=== PATIENT | female | born 1955 | race Caucasian/White ===

== ENCOUNTER 2025-02-11 13:49 | Inpatient (IN) | payer MEDICARE, OTHER, SELFPAY ==
[2025-02-11] VITALS (12 sets, daily range): BP systolic 94–168; BP diastolic 38–120; BMI 29.6
[2025-02-11 08:17] LABS: Glucose - Point of Care 216 mg/dl (70-99)
--- NOTE | 2025-02-11 08:33 | ED.GENMED ---
History of Present Illness
General
Chief Complaint: Blood Sugar Problem
Source: patient
Exam Limitations: none
Time Seen by Provider: 02/11/25 08:10
Nursing documentation reviewed up to this point in time: agreed with
History of Present Illness
History of Present Illness:
69-year-old female sent by [facility]. Patient has a history of bipolar depression dementia and was found in the middle of the night taking her sheets off and acting funny her sugar at that time was found to be 27. She was given 2
separate injections of glucagon. Around 6:40am this morning patient was still acting confused and shivering. I spoke to shelter nurse reports patient has mild dementia however is able to hold conversation and follow commands. She is able
to eat and drink on her own and ambulate without difficulty.
Past History
Past History
ED Past Medical History: Fibromyalgia, GERD, HTN, Hypercholesterolemia, IDDM (Very brittle diabetic.), Hypothyroidism and Other (Glaucoma)
ED Past Surgical History: and Orthopedic
Social History
Tobacco: Non-smoker
Alcohol: None
Drug: None
Personal: Other (Patient lives at [facility]. According to shelter personnel patient was living with her sister who works timekeeper. Her sister would frequently come home and find patient unresponsive due to her diabetes. Patient is
unable to take care of herself regarding her diabetes.)
Living: shelter
Employment: Not employed
Family History
Family History: Unable to obtain
Review of Systems
Review of Systems
Allergies reviewed?: Yes
Unable to obtain full review of systems at this time due to: dementia (change in ms )
Other source history: shelter
All Other Systems: ROS reviewed and negative except as documented in HPI and ROS
Constitutional: Reports chills (shivering as per [place] nurse )
Neurological: Reports other (change in MS )
Psychiatric: Reports no symptoms
Phy Exam
General Physical Exam
General Presentation: no apparent distress
General age: appears older than age
General Skin: warm
General Habitus: elderly
General Mental: confused
General Hydration: appears well hydrated
Cardiovascular Exam
Cardiovascular Exam: no murmur and tachycardia
Pulmonary Exam
Pulmonary Exam: lungs clear and no respiratory distress
Neurological Exam
Neurological Exam: other (pt confused )
Musculoskeletal Exam
Musculoskeletal Exam: full ROM
Skin Exam
Skin Exam: normal color and warm/dry
Psychiatric Exam
Psychiatric Exam: normal mood/affect
Course
Orders/Labs/Results
Orders:
Orders
02/11/25 08:31
CMP [Comprehensive Metabolic Panel] Urgent
Complete Blood Count/With Diff Urgent
TSH Reflex To Free T4 Urgent
Comment: ADD ON
02/11/25 08:34
Add On- LAB Urgent
Tests Added?: tsh with reflexive T4
02/11/25 08:40
Straight cath- Treatment ONCE
02/11/25 08:46
Chest [CR Chest - 2 Views ] Urgent
Comment:
Reason For Exam: change in ms
02/11/25 09:08
COVID-19 Antigen Urgent
Source: Nasal Swab
Lactic Acid Q4H
Comment: CANCEL 2nd LACTIC ACID IF 1st LACTIC ACID IS LESS THAN 2
Urinalysis Reflex To Culture Urgent
Date Specimen was Collected: 02/11/25
Time Specimen was Collected: 09:06
Urine Microscopic Reflex Cult Urgent
Blood Culture Q30M
TRISTAN Source: Blood/Venous
Specimen Description:
Influenza A+B Rapid Molecular Urgent
TRISTAN Source: Nasal Swab
Specimen Description:
02/11/25 09:52
CT Head W/o Iv Contrast Urgent
Comment:
Reason For Exam: MS change
02/11/25 09:55
0.9% Sodium Chloride 1000 ml [Nss] 1,000 ml IV BOLUS
02/11/25 10:27
Blood Culture Q30M
TRISTAN Source: Blood/Venous
Specimen Description:
02/11/25 11:14
Acetaminophen 1000MG/100Ml [Ofirmev] 1,000 mg in 100 ml IV ONCE
Acetaminophen IV Indication:: Targeted Temp Management
02/11/25 11:16
Acetaminophen 1000MG/100Ml [Ofirmev] 1,000 mg in 100 ml .ROUTE .STK-MED
02/11/25 11:20
Electrocardiogram (*1) Stat
Reason for Study: Other
Other Reason for Exam: chest pain
EKG- Treatment ONCE
02/11/25 13:26
Admit/Transfer Patient As Directed
Co-Sign Provider:
Level of Care: Inpatient admission
Assign to:: Medical/Surgical
Physician / Group: hospitalist
Diagnosis: hypoglycemia
Reason for Hospitalization: Hypoglycemia
Expected length of stay greater than two midnights?: Yes
ELOS- Estimated Length of Stay in days: 3
I certify the patient meets the requirements for IP care: Yes
Code Status As Directed
Resuscitation Status: Full Code
02/11/25 13:29
PRN Pain Medication Management As Directed
May give lesser potent ordered pain med per pt: Yes
preference::
Protocol:: Medication orders for pain may be administered in a
manner that supports deferring to patient preference
when the pt is:
- Requesting an ordered lesser potent pain medication.
Least to most potent pain medications are defined
as: acetaminophen < NSAID < tramadol < opioids
(morphine, oxycodone, hydromorphone).
- Requesting a lesser dose of the same medication IF
ORDERED.
- Requesting a less intrusive route of administration
if both routes are prescribed by the provider (PO <
IV).
02/11/25 13:37
Vancomycin [Vancocin] 1,500 mg 0.9% Sodium Chloride 500 ml [Nss] 500 ml IV NOW
02/11/25 14:00
Piperacillin/Tazo 3.375 Gram [Zosyn] 3.375 gram in 50 ml IV Q6H
02/11/25 16:46
Albuterol [ProAIR HFA INHALER] 2 puff INH R Q4HPRN PRN
Ipratropium/Albuterol Sulfate [Duoneb] 3 ml INH R Q4
02/11/25 16:46
Activity As Directed
Activity Level: As Tolerated
Notify MD As Directed
Notify physician if: Bridge Admission orders placed.
Notify attending physician:
-- upon arrival to unit
OR
-- when patient is identified as an ED hold
Vital Signs As Directed
Frequency: Per unit guidelines
O2 Therapy [RESP] Routine
Titrate/Wean O2 to maintain O2 sat greater than (%): 92
DX Deep Vein Thrombosis Video Routine
02/11/25 18:00
Enoxaparin Sodium [Lovenox] 40 mg SC QPM
Insulin Aspart Corrective Low [Novolog Flexpen-Low Resistance] See Protocol SC Q6
02/11/25 20:00
dorzolamide-timolol 1 drop BOTH EYES BID
02/11/25 22:00
Atorvastatin [Lipitor] 5 mg PO HS
Latanoprost [Xalatan Ophthalmic Solution] See Dose Instructions BOTH EYES HS
Melatonin 5 mg PO HS
02/12/25 07:00
Levothyroxine [Synthroid] 75 mcg PO MOTUWETHFRSA@0700
02/12/25 08:00
Duloxetine Delayed Release [Cymbalta Delayed Release] 60 mg PO DAILY
Lisinopril [Zestril] 5 mg PO DAILY
Abnormal Lab Results
02/11/25 02/11/25 02/11/25
08:16 08:31 09:08
WBC 14.8 H 10^3/uL
(4.8-10.8)
MCV 79.8 L fL
(81.0-99.0)
MCH 25.8 L pg
(27.0-31.0)
MCHC 32.4 L g/dL
(33.0-37.0)
MPV 11.1 H fL
(7.4-10.4)
Abs Immat Gran (auto) 0.1 H 10^3/uL
(0-0.05)
Absolute Neuts (auto) 11.1 H 10^3/uL
(1.4-6.5)
Neutrophils % 75.4 H %
(42.2-75.2)
Lymphocytes % 18.6 L %
(20.5-51.1)
Potassium 5.6 H mmol/L
(3.5-5.1)
BUN 19 H mg/dl
(7-17)
Glucose 245 H mg/dl
(70-99)
AST 48 H U/L
(14-36)
ALT 39 H U/L
(0-35)
Alkaline Phosphatase 175 H U/L
(38-126)
Urine Glucose 3+ A
(Negative)
Urine Albumin (Reflex) 3+ A
(Neg - Trace)
POC Glucose 216 H mg/dl
(70-99)
02/11/25
10:28
WBC
MCV
MCH
MCHC
MPV
Abs Immat Gran (auto)
Absolute Neuts (auto)
Neutrophils %
Lymphocytes %
Potassium
BUN
Glucose
AST
ALT
Alkaline Phosphatase
Urine Glucose
Urine Albumin (Reflex)
POC Glucose 207 H mg/dl
(70-99)
02/11/25 08:31
02/11/25 08:31
Vital Signs
Initial and Last Documented VS:
Initial Vital Signs
Temp Pulse Resp BP Pulse Ox
96.7 F L 116 24 157/100 94
02/11/25 08:14 02/11/25 08:14 02/11/25 08:14 02/11/25 08:14 02/11/25 08:14
Last Documented Vital Signs
Temp Pulse Resp BP Pulse Ox
98.1 F 112 18 179/101 96
02/12/25 23:00 02/12/25 23:00 02/12/25 23:00 02/12/25 23:00 02/12/25 23:00
Getterer consulted with Physician
Getterer consulted with physician?: Yes
Name of Physician Consulted: Ozzy
MDM/Problems Addressed
MDM/Problems Addressed:
As documented patient is a 69-year-old female from the shelter was found to have change in mental status. Incidentally patient was found to have a low blood sugar in the [place] of 27 and was given 2 separate administrations of glucagon. I
spoke with the nurse at the shelter who reports patient is normally awake alert and oriented very minimally demented however able to care for herself. Patient is not able to give history she does not follow commands. Patient presented with an
elevated sugar here. Her CT head is unremarkable. Initially patient was found to be hypothermic with a temp of 96.7 however repeat temperature shows 100.6.
Patient's white count is elevated at 14.8 with a negative urine negative x-ray and normal lactic acid of 1.9.
Will admit for fever of unknown origin along with change in mental status will need further evaluation
*Radiology
Radiology exam reviewed: radiology read reviewed
*Pulse Oximetry
Patient hypoxic: no
*Critical Care Note
Total Time (30-74mins, 75-104mins- exclusive of procedures): Not Applicable
ED Attending Note
-
Portions of this chart may have been created with voice recognition software.� Occasional wrong word or��sound alike� substitutions may have occurred due to the inherent limitations of voice recognition software.
Discharge Plan
Departure
Patient Disposition: Admit
Date of Disposition: 02/11/25
Time of Disposition: 12:04
Admit to: Med/Surg
Admit to doctor: hospitalist
Presentation/result/management discussed w/ accepting MD/DO: Hospitalist
Patient with high blood pressure during this ER visit?: No
Condition: Fair
Covid-19: Not Applicable
Discharge Problem:
change in ms, Fever
Interventions
Interventions:
*Risk Screen - Suicide Last Done: 02/11/25 08:20
*General Assessment Last Done: 02/11/25 08:36
*Neglect/Abuse Screening Last Done: 02/11/25 08:20
*ED- Fall Risk Assessment Last Done: 02/11/25 08:20
*ED COVID-19 Vaccine History Last Done: 02/11/25 08:20
*Nursing Disposition Last Done: 02/11/25 16:47
ED- Neurological Assessment Last Done: 02/11/25 15:28
Discharge Date and Time
Discharge Date/Time: 02/11/25 16:49
[2025-02-11 08:41] LABS: % Basophils 0.9 % (0-2); % Eosinophils 0.9 % (0-6); % Immature Granulocytes 0.4 % (0-0.5); % Lymphocytes 18.6 % (20.5-51.1); % Monocytes 3.8 % (1.7-9.3); % Neutrophils 75.4 % (42.2-75.2); Absolute Basophils 0.1 10^3/uL (0-0.2); Absolute Eosinophils 0.1 10^3/uL (0-0.7); Absolute Immature Granulocytes 0.1 10^3/uL (0-0.05); Absolute Lymphocytes 2.7 10^3/uL (1.2-3.4); Absolute Monocytes 0.6 10^3/uL (0.1-0.6); Absolute Neutrophils 11.1 10^3/uL (1.4-6.5); Hemoglobin 12.3 g/dL (12.0-16.0); Mean Corp Hgb Conc. 32.4 g/dL (33.0-37.0); Mean Corpuscular Hgb 25.8 pg (27.0-31.0); Mean Corpuscular Volume 79.8 fL (81.0-99.0); Mean Platelet Volume 11.1 fL (7.4-10.4); Nucleated Red Blood Cells % 0 %; Platelet Count 269 10^3/uL (130-400); Red Blood Cell Count 4.76 10^6/uL (4.20-5.40); Red Cell Dist. Width 13.9 % (11.5-14.5); White Blood Cell Count 14.8 10^3/uL (4.8-10.8)
[2025-02-11 08:57] LABS: ALT (SGPT) 39 U/L (0-35); AST (SGOT) 48 U/L (14-36); Albumin 4.9 g/dl (3.5-5.0); Alkaline Phosphatase 175 U/L (38-126); Blood Urea Nitrogen 19 mg/dl (7-17); Carbon Dioxide 25 mmol/L (22-30); Chloride 103 mmol/L (98-107); Glucose 245 mg/dl (70-99); Potassium 5.6 mmol/L (3.5-5.1); Sodium 141 mmol/L (135-145); Total Bilirubin 0.6 mg/dl (0.2-1.3); Total Protein 8.2 g/dl (6.3-8.2); eGFR > 60.00
[2025-02-11 09:32] LABS: Urine Albumin 3+ (Neg - Trace); Urine Bilirubin Negative (Negative); Urine Character Clear (Clear); Urine Color Yellow; Urine Glucose 3+ (Negative); Urine Ketone Negative (Negative); Urine Leukocyte Negative (Negative); Urine Nitrite Negative (Negative); Urine Occult Blood Negative (Negative); Urine Specific Gravity 1.015 (<1.030); Urine Urobilinogen Negative (Neg - 1+)
[2025-02-11 10:01] LABS: COVID-19 Antigen Negative (Negative)
[2025-02-11] MEDS: NSS 1000 IV (10:18)
[2025-02-11 10:29] LABS: Glucose - Point of Care 207 mg/dl (70-99)
[2025-02-11 10:47] LABS: TSH Reflex To Free T4 0.56 uIU/ml (0.47-4.68)
[2025-02-11 10:50] LABS: Urine Hyaline Cast >15 /LPF (0-2); Urine Squamous Cell 0-2 /LPF (Few)
[2025-02-11 10:51] LABS: Urine Red Blood Cell 0-2 /HPF (0-2); Urine White Cell 0-2 /HPF (0-5)
--- NOTE | 2025-02-11 11:06 | EDRN ---
call to lab as lactic acid still is not resulted- sent at 0910
[2025-02-11 11:14] LABS: Lactic Acid 1.9 mmol/L (0.7-2.0)
[2025-02-11] MEDS: OFIRMEV 100 IV (11:18)
--- NOTE | 2025-02-11 13:26 | HPS.HSE ---
Addendum entered and electronically signed by Larry Bolton MD 02/11/25 22:23:
Attending Addendum-
I performed a history and physical exam of the patient and discussed his management with the resident. I reviewed the resident's note and agree with the documented findings and plan of care CC/HPI- Sent from [facility] due to chills HTN, acting
strange and hypoglycemia. Patient is only answering yes/no. Denies fevers chills SOB urinary sxs CP. Full 12 point ROS reviewed and negative except as documented Exam- vitals reviewed in EMR GEN-NAD head under covers heart RRR lungs decreased BS @
bases abd soft obese TTP LLQ no rebound guarding LE no edema Neruo- AAO x 3 follows commands MS 03/04
Plan:
#Sepsis, secondary to unknown source
- check Blood Cx urine cx
- cont empiric Zosyn/Vanc day #1
- Abd pain on exam, check CT abd/pelvis
- r/u PE check CT chest
- monitor closely
#Toxic Metabolic Encephalopathy, possibly secondary to sepsis vs hypoglycemia vs meds
- able to follow commands/respond to basic questions
- CT head unremarkable
- will c/t monitor
- hold sedating meds for now
#Hyperkalemia, uncertain etiology
- K on admission 5.6 No ECG changes
- Will continue to monitor
- repeat BMP in am
- EKG w/o T wave changes
- cont duonebs
#Transaminitis
#Chronic Hepatitis?
- records show chronic hepatitis
- AST/ALT/ALP elevation
- Observe CT for liver findings
- will c/t trend
#Dementia, mild to moderate - baseline per [facility] staff is that she is able to take care of her ADLs and communicate appropriately
#IDDM - brittle per records, was hypoglycemic at [facility], c/w LDISS. Holding oral antiglycemic agents & home HS/AC insulin, check Hba1c
#Essential Hypertension - c/w lisinopril
#Hyperlipidemia - c/w statin
#Hypothyroidism - c/w levothyroxine
#Fibromyalgia
- holding pregabalin, hydrocodone
- CTM
#Bipolar/Depression/Anxiety - c/w Duloxetine
- restart ativan tomorrow as taking it chronically
#Glaucoma - c/w timolol and latanoprost drops
DVT Ppx: Lovenox
Code Status: Full Code AAO x 3
Time spent coordinating care, review of plan of care with resident, personally reviewed previous records in EMR and limited [facility] records provided, med rec, labs, radiology, d/w nursing �- 75 mins
Original Note:
Family Physician
-
Family Physician: Praveen Ceballos
Chief Complaint
-
Hypoglycemia
AMS
Rigors
History of Present Illness
Patient is a 69 year old female who presents from [facility] for symptoms of hypoglycemia, altered mental status and new rigors. She remains altered on exam with a PMHx significant for dementia. As such, she was minimally responsive
during interview.
Called the [facility] and spoke with Jaquelin:
Per reports, the patient was found at night on 02/10 to be acting strange, taking her sheets off. When they returned to check on her she was unresponsive. VS at that time show BP 180/80mmHg, 116 HR, 20-22, 95% on RA. No temp recorded. Blood sugar was
found to be 27. She was given glucagon. repeat sugars were 78 after 1 hour and so another glucagon was administered. After 30 minutes her blood sugar was up to 106 and she was awake and responsive but groggy. In the morning she was found to still be
altered, only now she was having chills. There are no reports of recent illnesses or recent symptoms of fevers, dysuria, or pain. She does not have any documented wounds or ulcers.
Medical History
Past Medical History
Past Medical History: Reports Dementia, HTN, Hypercholesterolemia, Hypothyroidism, IDDM and Psychiatric
Past Surgical History: Reports and Other (Repair of Wrist fracture)
Social History
Unable to obtain full social history at this time due to: Dementia
Family History
Family History: Unable to Obtain
Allergies / Home Medications
Allergies reflects when Allergies were last updated in [facility].
Home Medications with original date entered in [facility]
Allergy/Medication List:
Allergies
Allergy/AdvReac Type Severity Reaction Status Date / Time
No Known Allergies Allergy Verified 01/05/23 10:36
Home Medications
aspirin 81 mg chewable tablet 81 mg PO DAILY Blood clot prevention/tx 10/28/21
atorvastatin 10 mg tablet 5 mg PO HS High cholesterol 10/28/21
cyclosporine 0.05 % eye drops in a dropperette (Restasis) 1 drp BOTH EYES BID Eye condition 10/28/21
duloxetine 60 mg capsule,delayed release 60 mg PO DAILY Depression 10/28/21
lisinopril 5 mg tablet 5 mg PO DAILY Blood pressure 10/28/21
lorazepam 0.5 mg tablet 0.5 mg PO HS Mental Health/Anxiety 10/28/21
melatonin 5 mg tablet 5 mg PO HS Sleep 10/28/21
thiamine HCl (vitamin B1) 100 mg tablet 100 mg PO DAILY Supplement 10/28/21
trazodone 50 mg tablet 25 mg PO HS Depression 10/28/21
biotin 5 mg capsule 5 mg PO DAILY Supplement 12/21/21
pregabalin 50 mg capsule 50 mg PO TID Neurological Condition 12/21/21
acetaminophen 325 mg tablet 650 mg PO Q4HPRN PRN mild pain/fever>100 03/09/22
coQ10 (ubiquinol) 200 mg capsule 200 mg PO BID Supplement 08/10/22
hydrocodone 5 mg-acetaminophen 325 mg tablet 1 tab PO HS Pain 08/10/22
albuterol sulfate 90 mcg/actuation aerosol inhaler 2 puff inhalation R DAILY wheezing 01/05/23
albuterol sulfate 90 mcg/actuation aerosol inhaler 2 puff inhalation R Q4HPRN PRN sob,wheezing,cough 01/05/23
camphor-menthol 0.5 %-0.5 % lotion (Sarna Original) 1 applic topical [id number] PRN arms,legs trunk skin care 01/05/23
cholecalciferol (vitamin D3) 1,250 mcg (50,000 unit) capsule 1,250 mcg PO MONTHLY Supplement 01/05/23
dorzolamide 22.3 mg-timolol 6.8 mg/mL eye drops 1 drp BOTH EYES BID Eye condition 01/05/23
insulin degludec 100 unit/mL (3 mL) subcutaneous pen (Tresiba FlexTouch U-100 insulin) 22 unit SC HS Diabetes 01/05/23
ipratropium 0.5 mg-albuterol 3 mg (2.5 mg base)/3 mL nebulization soln 3 ml inhalation R Q4 01/05/23
latanoprost 0.005 % eye drops 1 drp BOTH EYES HS 01/05/23
phenol 1.4 % mucosal aerosol spray (Sore Throat (phenol)) 2 spray mucous membrane Q6HPRN PRN sore throat 01/05/23
carboxymethylcellulose 0.5 %-glycerin 0.9 % eye drops (Refresh Optive) 1 drp BOTH EYES TID 02/11/25
erythromycin 5 mg/gram (0.5 %) eye ointment 0.25 inch BOTH EYES HS 02/11/25
insulin aspart U-100 100 unit/mL (3 mL) subcutaneous pen (Novolog FlexPen U-100 Insulin aspart) 2 sliding scale dose SC AC 02/11/25
levothyroxine 75 mcg tablet (Synthroid) 75 mcg PO MOTUWETHFRSA@0700 02/11/25
Review of Systems
-
Unable to obtain full review of systems at this time due to: Dementia
History Source: Patient
A 12 point ROS was completed and negative except as noted: Yes
Constitutional: Reports No Symptoms
EENT: Reports No Symptoms
Respiratory: Reports No Symptoms
Cardiac: Reports No Symptoms
Abdomen/GI: Reports No Symptoms
: Reports No Symptoms
Musculoskeletal: Reports No Symptoms
Neurological: Reports No Symptoms
Physical Exam
Vital Signs
Vital Signs
Temp Pulse Resp BP Pulse Ox
100.6 F H 119 20 155/114 95
02/11/25 11:05 02/11/25 11:45 02/11/25 11:45 02/11/25 11:02 02/11/25 11:45
Physical Exam
General: Well Developed, Well Nourished and Appears in Distress
HEENT: NormoCephalic, Anicteric, Moist mucous membranes, Atraumatic, PERRLA, [place] Conjunctivae, Nose Appears Normal and Ears Appear Normal
Respiratory: Clear; No Wheezes, Rales or Rhonchi
Cardiac: S1/S2, Regular Rhythm and Tachycardia; No Murmur
Breast: Deferred by me
GI: Soft, Normal Bowel Sounds, Tender (LLQ/RLQ) and Distended
Genito-urinary: Deferred by me
Musculoskeletal: No Clubbing, No Cyanosis and No Edema
Skin: Warm, Dry and IV/Catheter Site
Neuro: Awake, Alert, Oriented and Other (Tired appearing and reluctant to follow commands)
Laboratory Results
-
02/11/25 08:31
02/11/25 08:31
Laboratory Results
Lactic Acid Cancelled 02/11/25 12:45
Total Bilirubin 0.6 mg/dl (0.2-1.3) 02/11/25 08:31
AST 48 U/L (14-36) H 02/11/25 08:31
ALT 39 U/L (0-35) H 02/11/25 08:31
Alkaline Phosphatase 175 U/L (38-126) H 02/11/25 08:31
Impression/Plan
-
69 year old female presenting from [facility] with AMS, Hypoglycemia and Chills
ACUTE MANAGING
#Sepsis, secondary to unknown source
- Tachycardic, tachypneic, leukocytosis with left shift on admission. Lactate wnl.
- Unclear source; UA negative, CXR negative.
- Blood Cx drawn, pending
- s/p 1L NS Infusion
- Will start on empiric Zosyn/Vanc, pending Cx/Sensitivity
- Abd pain on exam, pt unable to clarify -- ordering CT chest/abd/pelvis
#Toxic Metabolic Encephalopathy, likely secondary to sepsis
- Patient somnolent and minimally responsive, but able to follow commands/respond to basic questions. no meningeal signs
- CT head unremarkable
- will c/t monitor
#Hyperkalemia, uncertain etiology
- K on admission 5.6 No ECG changes
- Will continue to monitor
#Transaminitis
#Chronic Hepatitis?
- records show chronic hepatitis, dx codes from [facility] paperwork also show chronic hepatitis, type unclear
- AST/ALT/ALP elevation
- Observe CT for liver findings
- will c/t trend
CHRONIC STABLE
#Dementia, mild to moderate - baseline per NH staff is that she is able to take care of her ADLs and communicate appropriately
#IDDM - c/w LDISS. Holding oral antiglycemic agents & home HS/AC insulin
#Essential Hypertension - c/w lisinopril
#Hyperlipidemia - c/w statin
#Hypothyroidism - c/w levothyroxine
#Fibromyalgia
- holding pregabalin, hydrocodone. No pain at this time, do not want to sedate with AMS
- no reports of pain at this time, will observe and treat as needed
#Bipolar/Depression/Anxiety - c/w Duloxetine
#Glaucoma - c/w timolol and latanoprost drops
DVT Ppx: Lovenox
Code Status: Full Code
[2025-02-11] MEDS: ZOSYN 50 IV ×2 (13:51→20:11)
[2025-02-11] MEDS: VANCOCIN 530 MG IV (14:15)
--- NOTE | 2025-02-11 15:13 | PHA.VAN.IN ---
Assessment
- Assessment
Renal Function: Appears similar to baseline (0.7)
Maximum Temperature: 100.6
Concomitant Antimicrobials: Piperacillin/Tazobactam
AUC Dosing Plan
- Dosing Variables
Dosing Weight (kg): 66
Dosing CrCl (ml/min): 79
Vd coefficient (L/kg): 0.7
- Empiric Dosing
Initial / Loading Dose: Vanco 1500mg Loading administered 02/11/25 1415
Maintenance Regimen: Vanco 750mg Q12H Starting 02/12/25 0600
Estimated AUC (mcg*h/mL): 480
Estimated Peak (mcg*h/mL): 28.6
Estimated Trough (mcg/ml): 13.2
Estimated Half Life (H): 9.9
- Monitoring
No levels ordered at this time: Consider in the next few days
Pharmacokinetics Vancomycin I
- -
Patient Age: 69
Patient Sex: Female
Vancomycin Day #: 1
Indication: Other
Requesting Provider: Faviola
Pertinent Antimicrobial Allergies:
No known drug allergies
Height / Weight:
Actual Weight 66 kg
Pertinent Past Medical History: T2DM
- Vital Signs / Lab Results
Temp Pulse Resp BP Pulse Ox
100.6 F H 108 18 138/48 94
02/11/25 11:05 02/11/25 14:00 02/11/25 14:00 02/11/25 14:00 02/11/25 14:00
Lab Results - Hematology
02/11/25
08:31
WBC 14.8 H
Lab Results - Chemistry
02/11/25
08:31
BUN 19 H
Creatinine 0.7
Albumin 4.9
02/11/25 02/11/25
09:08 12:45
Lactic Acid 1.9 Cancelled
Lab Results - Urine
02/11/25
09:08
Urine Nitrite (Reflex) Negative
Leukocyte Esterase Rfl Negative
Urine WBC (Reflex) 0-2
Ur Squamous Epith Cells 0-2
Microbiology Results
02/11/25 09:08 Influenza Types A & B (STEFANIE) - Final
Nasal Swab Negative for Influenza A & B, NAAT
Negative results must be combined with clinical observations
and patient history.
Nucleic Acid Amplification test (NAAT)performed on the
[employer] platform.
[2025-02-11 15:26] LABS: Glucose - Point of Care 121 mg/dl (70-99)
[2025-02-11 17:12] LABS: Glucose - Point of Care 88 mg/dl (70-99)
[2025-02-11] MEDS: LOVENOX SC ×2 (17:33→17:36)
[2025-02-11] MEDS: NOVOLOG FLEXPEN-LOW RESISTANCE SC (17:34)
--- NOTE | 2025-02-11 18:22 | PTCARENOTE ---
Pt. received from the ED around 1700. 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 Pt. only responding to yes and no questions at this time with limited details. Nursing assessment complete. Stat lab draw for ammonia ordered by dr. Dawson nurse and
tech tried to draw labs and unable to find good vein and pt. was refusing. Will pass along to mini shifter RN. Will continue with ongoing plan of care.
[2025-02-11] MEDS: MELATONIN 5 MG PO (20:12)
[2025-02-11] MEDS: LIPITOR 5 MG PO (20:12)
[2025-02-11] MEDS: XALATAN OPHTHALMIC SOLUTION 1 DROP BOTH EYES (20:12)
[2025-02-11 20:52] LABS: Ammonia < 9 umol/L (9-30)
[2025-02-11 21:39] LABS: Glucose - Point of Care 43 mg/dl (70-99)
[2025-02-11 22:01] LABS: Glucose - Point of Care 48 mg/dl (70-99)
--- NOTE | 2025-02-11 22:05 | W.PN.UPDATE ---
Update Note
Progress Note Update
Patient had an episode of hypoglycemia with bs 43-48, per nursing staff. Patient was able to drink juice. Speech eval added
-Will add dextrose PRN as needed for hypoglycemia per protocol.
[2025-02-11 22:22] LABS: Glucose - Point of Care 138 mg/dl (70-99)
[2025-02-11] MEDS: DEXTROSE 50% SYRINGE 12.5 GRAMS IV (22:30)
[2025-02-12 00:43] LABS: Glucose - Point of Care 238 mg/dl (70-99)
[2025-02-12] MEDS: NOVOLOG FLEXPEN-LOW RESISTANCE SC ×2 (00:49→06:06)
[2025-02-12] MEDS: ZOSYN 50 IV ×4 (02:11→20:28)
[2025-02-12 04:12] LABS: Glucose - Point of Care 216 mg/dl (70-99)
[2025-02-12 06:06] LABS: Glucose - Point of Care 186 mg/dl (70-99)
[2025-02-12] MEDS: SYNTHROID 75 MCG PO (06:07)
[2025-02-12] MEDS: VANCOCIN 150 IV ×2 (06:09→17:33)
[2025-02-12 06:19] LABS: % Basophils 0.9 % (0-2); % Eosinophils 3.6 % (0-6); % Immature Granulocytes 0.2 % (0-0.5); % Lymphocytes 35.6 % (20.5-51.1); % Monocytes 7.6 % (1.7-9.3); % Neutrophils 52.1 % (42.2-75.2); Absolute Basophils 0.1 10^3/uL (0-0.2); Absolute Eosinophils 0.3 10^3/uL (0-0.7); Absolute Lymphocytes 3.3 10^3/uL (1.2-3.4); Absolute Monocytes 0.7 10^3/uL (0.1-0.6); Absolute Neutrophils 4.8 10^3/uL (1.4-6.5); Hematocrit 29.5 % (37.0-47.0); Hemoglobin 9.9 g/dL (12.0-16.0); Mean Corp Hgb Conc. 33.6 g/dL (33.0-37.0); Mean Corpuscular Volume 77.4 fL (81.0-99.0); Mean Platelet Volume 10.7 fL (7.4-10.4); Nucleated Red Blood Cells % 0 %; Platelet Count 210 10^3/uL (130-400); Red Blood Cell Count 3.81 10^6/uL (4.20-5.40); Red Cell Dist. Width 14.3 % (11.5-14.5); White Blood Cell Count 9.2 10^3/uL (4.8-10.8)
[2025-02-12 06:45] LABS: ALT (SGPT) 25 U/L (0-35); AST (SGOT) 33 U/L (14-36); Albumin 3.8 g/dl (3.5-5.0); Alkaline Phosphatase 140 U/L (38-126); Blood Urea Nitrogen 11 mg/dl (7-17); Calcium 9.1 mg/dl (8.4-10.2); Carbon Dioxide 21 mmol/L (22-30); Chloride 106 mmol/L (98-107); Estimated Creatinine Clearance 55 ml/min; Glucose 210 mg/dl (70-99); Potassium 4.3 mmol/L (3.5-5.1); Sodium 137 mmol/L (135-145); Total Bilirubin 0.7 mg/dl (0.2-1.3); Total Protein 6.4 g/dl (6.3-8.2); eGFR > 60.00
[2025-02-12 06:58] LABS: Vancomycin Random 11.2 ug/ml
[2025-02-12 06:58] LABS: TSH 1.22 uIU/ml (0.47-4.68)
[2025-02-12 07:40] VITALS: BP 151/62
[2025-02-12 07:46] LABS: Glucose - Point of Care 238 mg/dl (70-99)
--- NOTE | 2025-02-12 07:55 | PHA.VAN.FU ---
Vancomycin Assessment / Plan
- Assessment
Renal Function: Stable (0.8)
WBC's are: WNL (9.2)
In the past 24 hrs, patient has been: Afebrile
Concomitant Antimicrobials: Piperacillin/Tazobactam
- Assessment - Therapeutic Drug Monitoring
Vancomycin random level ordered overnight for this AM for unclear reason but patient not at steady state and level drawn after infusion started so level is not accurate
- Dosing Plan
Continue: Vanco 750mg Q12H
- Monitoring Plan
No level(s) ordered at this time: Consider in the next few days
- Follow Up
Pharmacy will continue to follow.
Vancomycin Follow UP
- -
Patient Age: 69
Patient Sex: Female
Vancomycin Day #: 2
Indication: Other
Requesting Provider: Faviola
Pertinent Antimicrobial Allergies:
No known drug allergies
Height / Weight:
Height 4 ft 11 in
Actual Weight 66.497 kg
Pertinent Past Medical History: T2DM
- Vital Signs / Lab Results
Temp Pulse Resp BP Pulse Ox
98.8 F 106 14 151/62 94
02/12/25 07:40 02/12/25 07:40 02/12/25 07:40 02/12/25 07:40 02/12/25 07:40
Lab Results - Hematology
02/11/25 02/12/25
08:31 05:46
WBC 14.8 H 9.2
Lab Results - Chemistry
02/11/25 02/12/25
08:31 05:46
BUN 19 H 11
Creatinine 0.7 0.8
Estimated Creat Clear 55
Albumin 4.9 3.8
02/11/25 02/11/25
09:08 12:45
Lactic Acid 1.9 Cancelled
Lab Results - Urine
02/11/25
09:08
Urine Nitrite (Reflex) Negative
Leukocyte Esterase Rfl Negative
Ur Squamous Epith Cells 0-2
Microbiology Results
02/11/25 09:08 Influenza Types A & B (STEFANIE) - Final
Nasal Swab Negative for Influenza A & B, NAAT
Negative results must be combined with clinical observations
and patient history.
Nucleic Acid Amplification test (NAAT)performed on the
[employer] platform.
Therapeutic Drug Monitoring
Random Vancomycin 11.2 ug/ml 02/12/25 06:18
[2025-02-12 08:34] LABS: Glycohemoglobin (HgbA1c) 9.5 % (4.0-5.6)
[2025-02-12] MEDS: CYMBALTA DELAYED RELEASE 60 MG PO (08:57)
--- NOTE | 2025-02-12 09:48 | W.PN.HOSP.TC ---
Addendum entered and electronically signed by Laryr Bolton MD 02/12/25 23:10:
Attending Addendum-
I saw and evaluated the patient. I reviewed the resident�s note and agree with findings and plan as documented in the resident�s note. Sub: feels improved. more alert today. 'I feel good' Denies fevers chills SOB urinary sxs CP. was hypoglycemic
overnight. Full 12 point ROS reviewed and negative except as documented Exam- vitals reviewed in EMR GEN-NAD heart RRR lungs decreased BS @ bases abd soft obese NTND no rebound guarding LE no edema Neuro- AAO x 3 follows commands MS 03/04
Plan:
#Sepsis, secondary to unknown source
- check Blood Cx urine cx-NGTD
- cont empiric Zosyn/Vanc day #2
-check MRSA
-Abd pain on exam, check CT abd/pelvis
-r/u PE check CT chest
1. There is no evidence of pulmonary embolus.
2. There is lower lobe predominant bronchial wall thickening with scattered groundglass opacities which likely represents bronchiolitis.
3. Mild colonic stool burden without evidence of obstruction.
4. Moderate distention of the urinary bladder.
5. 7 mm hypodensity along the posterior aspect of the uncinate process of the pancreas which may represent small pseudocyst or side branch IPMN. Nonemergent MRI abdomen may be considered as clinically warranted.
6. Mild prominence of the bilateral renal collecting systems without evidence of obstruction. Infection is possible although considered less likely and findings may related to the distended urinary bladder. Consider correlation with urinalysis.
7. 1 myomatous uterus with calcified uterine fibroids.
- monitor closely
#Toxic Metabolic Encephalopathy, possibly secondary to sepsis vs hypoglycemia vs meds
- able to follow commands/respond to basic questions
- resolved
- CT head unremarkable
- will c/t monitor
- hold sedating and DM meds for now
#Hyperkalemia, uncertain etiology
- K on admission 5.6 No ECG changes
- resolved
- Will continue to monitor
- repeat BMP in am
#Transaminitis
#Chronic Hepatitis?
-trending down
- records show chronic hepatitis
- AST/ALT/ALP elevation
- will c/t trend
#Dementia, mild to moderate - baseline per NH staff is that she is able to take care of her ADLs and communicate appropriately
#IDDM - uncontrolled, brittle per records, was hypoglycemic here and at NH. Holding oral antiglycemic agents & home BB HS/ add SS AC insulin, Ttn1c-7.5
#Essential Hypertension - c/w lisinopril
#Hyperlipidemia - c/w statin
#Hypothyroidism - c/w levothyroxine
#Fibromyalgia
- holding pregabalin, hydrocodone
- CTM
#Bipolar/Depression/Anxiety - c/w Duloxetine
- restart ativan tomorrow as taking it chronically
#Glaucoma - c/w timolol and latanoprost drops
DVT Ppx: Lovenox
Code Status: Full Code
[facility]
Time spent coordinating care, review of plan of care with resident, personally reviewed records in EMR, med rec, consults, notes, labs, radiology, d/w nursing � 54 mins
Original Note:
Today's Communication/Plan
-
c/w abx
observe cultures
Assessment / Plan
Assessment / Plan
69 year old female presenting from [facility] with AMS, Hypoglycemia and Chills
ACUTE MANAGING
#Sepsis, secondary to unknown source
- Tachycardic, tachypneic, leukocytosis with left shift on admission. Lactate wnl.
- Unclear source; UA negative, CXR negative.
- Blood Cx drawn, NGTD, MRSA pending
- s/p 1L NS Infusion
- Will c/w empiric Zosyn/Vanc
- CT abd/pelvis showing moderate stool burden, no evidence for diverticulitis or acute obstructive process in the bowel/renal system
#Toxic Metabolic Encephalopathy, likely secondary to sepsis
- CT head unremarkable
- More responsive today, able to follow commands/respond to basic questions. no meningeal signs
- uncertain of true baseline, however patient seems to be improving in her mood. Will c/t monitor MS.
#Hyperkalemia, uncertain etiology (resolved)
- K on admission 5.6 No ECG changes. K today 4.3
- Will continue to monitor
#Transaminitis
#Chronic Hepatitis?
- records show chronic hepatitis, dx codes from [place] paperwork also show chronic hepatitis, type unclear
- AST/ALT on admission 48/39, now normalized at 33/25.
- ALP on admission 175, now 140.
- no significant hepatobiliary findings on CT, resolution of abd sx on exam
- will c/t trend
#IDDM (uncontrolled)
- Holding oral antiglycemic agents & home HS/AC insulin.
- A1C 9.5%
- recurrent episodes of nighttime hypoglycemia, will c/t monitor and strongly consider adjusting home insulin regimen
- c/w LDISS, diabetic diet
CHRONIC STABLE
#Dementia, mild to moderate - baseline per NH staff is that she is able to take care of her ADLs and communicate appropriately
#Essential Hypertension - c/w lisinopril
#Hyperlipidemia - c/w statin
#Hypothyroidism - c/w levothyroxine
#Fibromyalgia
- holding pregabalin, hydrocodone. No pain at this time, do not want to sedate with AMS
- no reports of pain at this time, will observe and treat as needed
#Bipolar/Depression/Anxiety - c/w Duloxetine
#Glaucoma - c/w timolol and latanoprost drops
DVT Ppx: Lovenox
Code Status: Full Code
CT Pe/abd/pel W:
1. There is no evidence of pulmonary embolus.
2. There is lower lobe predominant bronchial wall thickening with scattered groundglass opacities which likely represents bronchiolitis.
3. Mild colonic stool burden without evidence of obstruction.
4. Moderate distention of the urinary bladder.
5. 7 mm hypodensity along the posterior aspect of the uncinate process of the pancreas which may represent small pseudocyst or side branch IPMN. Nonemergent MRI abdomen may be considered as clinically warranted.
6. Mild prominence of the bilateral renal collecting systems without evidence of obstruction. Infection is possible although considered less likely and findings may related to the distended urinary bladder. Consider correlation with urinalysis.
7. 1 myomatous uterus with calcified uterine fibroids.
Anticipated Discharge: 24 - 48 hours
Subjective/Interval History
-
Date of Service: February 12, 2025
Seen this morning. She is a bit more alert and awake this morning, but still evasive with questions. Though she does not report any pain or specific sx, when asked if she feels sick she says 'yes'. had episode of hypoglycemia overnight, given
glucagon.
Objective Data
-
Labs:
Laboratory Results
02/12/25
05:46
WBC 9.2
Hgb 9.9 L
Hct 29.5 L
Plt Count 210 D
Sodium 137
Potassium 4.3
Chloride 106
Carbon Dioxide 21 L
BUN 11
Creatinine 0.8
Glucose 210 H
Calcium 9.1
Total Bilirubin 0.7
AST 33
ALT 25
Alkaline Phosphatase 140 H
Vital Signs:
Vital Signs
Temp Pulse Resp BP Pulse Ox
98.8 F 106 14 151/62 94
02/12/25 07:40 02/12/25 07:40 02/12/25 07:40 02/12/25 07:40 02/12/25 07:40
Review of Systems
-
Unable to obtain full review of systems at this time due to: Dementia
History Source: Patient
Constitutional: Reports No Symptoms
EENT: Reports No Symptoms Reported
Respiratory: Reports No Symptoms
Cardiac: Reports No Symptoms
Abdomen/GI: Reports No Symptoms
Genitourinary: Reports No Symptoms
Musculoskeletal: Reports No Symptoms
Physical Exam
-
General: Well Developed, Well Nourished, No Apparent Distress and Comfortable
HEENT: Normocephalic, Atraumatic, Moist Mucous Membranes, Anicteric and Zwingle Conjunctivae
Respiratory: Clear to Auscultation; Negative Wheezes, Rales or Rhonchi
Cardiac: Regular Rhythm and S1/S2; Negative Murmur or Rub
GI: Soft, Nontender, Nondistended and Normal Bowel Sounds
Genito-urinary: No Costovertebral Tender and Clear Urine
Musculoskeletal: No Clubbing, No Cyanosis and No Edema
Skin: Warm, Dry and IV Access / Catheter Site
Neuro: Awake, Alert and Oriented
[2025-02-12 11:52] LABS: Glucose - Point of Care 219 mg/dl (70-99)
--- NOTE | 2025-02-12 11:58 | CM ---
Pt is LTC resident of [facility] and will return there at discharge. Per SNF liaison (Corina), pt is (I) amb and adls, no skilled needs identified.
CM met with patient briefly; she was not interested in conversing. She is aware that she will return to [facility] when she is medically ready.
CM to follow to coordinate return to [facility] SNF when medically stable. Call to pt's sister to review IMM; she declined providing email address, but gave verbal consent for IMM.
--- NOTE | 2025-02-12 12:45 | PTOTSP ---
Speech therapy Evaluation:
Assessment limited given pt refusals. Pt consistently expressed 'no' to HEAD SAMPLER during assessment, however she accepted thin liquid via straw sip x1, in which oral phase appeared WFL and she did not demonstrate any overt s/sx of aspiration. Pt with
acute on chronic risk factors of dysphagia including hx of dementia and GERD, compounded by TME. Cannot safely recommend solid consistently given limited assessment, however given pt on baseline of regular/thins and CXR/CT without PNA, can consider
initiation of puree per MD discretion with close monitoring during meals and low threshold for NPO.
Recommend:
1. Thin liquid diet; solids per MD discretion
2. Medications as tolerated
3. Strict aspiration and reflux precautions
4. Close assistance and supervision with meals
5. HEAD SAMPLER to follow to monitor tolerance of diet and determine candidacy for future diet advancements.
[2025-02-12] MEDS: NOVOLOG FLEXPEN-LOW RESISTANCE 2 UNITS SC (14:05)
[2025-02-12 15:16] VITALS: BP 137/57
[2025-02-12 16:26] LABS: Glucose - Point of Care 271 mg/dl (70-99)
[2025-02-12] MEDS: LOVENOX 40 MG SC (17:32)
[2025-02-12] MEDS: NOVOLOG FLEXPEN-LOW RESISTANCE 3 UNITS SC (17:33)
[2025-02-12] MEDS: LIPITOR 5 MG PO (20:28)
[2025-02-12] MEDS: MELATONIN 5 MG PO (20:28)
[2025-02-12] MEDS: XALATAN OPHTHALMIC SOLUTION 1 DROP BOTH EYES (20:29)
[2025-02-12 21:20] LABS: Glucose - Point of Care 285 mg/dl (70-99)
[2025-02-12 23:00] VITALS: BP 179/101
[2025-02-13] MEDS: ZOSYN 50 IV ×3 (03:10→13:36)
[2025-02-13] MEDS: ZOFRAN 4 MG PO (06:12)
[2025-02-13 06:29] LABS: % Immature Granulocytes 0.3 % (0-0.5); % Lymphocytes 32.1 % (20.5-51.1); % Monocytes 7.5 % (1.7-9.3); % Neutrophils 57.1 % (42.2-75.2); Absolute Basophils 0.1 10^3/uL (0-0.2); Absolute Eosinophils 0.2 10^3/uL (0-0.7); Absolute Lymphocytes 3.6 10^3/uL (1.2-3.4); Absolute Monocytes 0.8 10^3/uL (0.1-0.6); Absolute Neutrophils 6.4 10^3/uL (1.4-6.5); Hematocrit 33.5 % (37.0-47.0); Hemoglobin 11.3 g/dL (12.0-16.0); Mean Corp Hgb Conc. 33.7 g/dL (33.0-37.0); Mean Corpuscular Hgb 25.6 pg (27.0-31.0); Mean Platelet Volume 11.5 fL (7.4-10.4); Nucleated Red Blood Cells % 0 %; Platelet Count 256 10^3/uL (130-400); Red Blood Cell Count 4.41 10^6/uL (4.20-5.40); Red Cell Dist. Width 13.8 % (11.5-14.5); White Blood Cell Count 11.2 10^3/uL (4.8-10.8)
[2025-02-13] MEDS: VANCOCIN 150 IV (06:32)
[2025-02-13 06:38] LABS: ALT (SGPT) 27 U/L (0-35); AST (SGOT) 39 U/L (14-36); Albumin 4.5 g/dl (3.5-5.0); Alkaline Phosphatase 158 U/L (38-126); Blood Urea Nitrogen 10 mg/dl (7-17); Calcium 9.5 mg/dl (8.4-10.2); Carbon Dioxide 18 mmol/L (22-30); Chloride 104 mmol/L (98-107); Estimated Creatinine Clearance 55 ml/min; Glucose 335 mg/dl (70-99); Potassium 4.3 mmol/L (3.5-5.1); Sodium 136 mmol/L (135-145); Total Bilirubin 0.7 mg/dl (0.2-1.3); Total Protein 7.4 g/dl (6.3-8.2); eGFR > 60.00
[2025-02-13 07:05] VITALS: BP 168/85
[2025-02-13] MEDS: SYNTHROID 75 MCG PO (07:32)
[2025-02-13 07:36] LABS: Glucose - Point of Care 340 mg/dl (70-99)
[2025-02-13] MEDS: NOVOLOG FLEXPEN-LOW RESISTANCE 4 UNITS SC ×3 (07:37→16:50)
--- NOTE | 2025-02-13 08:47 | W.PN.HOSP.TC ---
Addendum entered and electronically signed by Larry Bolton MD 02/13/25 23:51:
Attending Addendum-
I saw and evaluated the patient. I reviewed the resident�s note and agree with findings and plan as documented in the resident�s note. Sub: feels greatly improved. alert. pleasnt. 'I wanna go home' Denies fevers chills SOB urinary sxs CP. Full 12
point ROS reviewed and negative except as documented Exam- vitals reviewed in EMR GEN-NAD heart RRR lungs decreased BS @ bases abd soft obese NT ND no rebound guarding LE no edema Neuro- AAO x 3 follows commands MS 03/04
Plan:
#Sepsis, secondary to unknown source
- Blood Cx urine cx-NGTD
- Zosyn/Vanc day #3
- nasal MRSA-neg
-Abd pain on exam, check CT abd/pelvis
-r/u PE check CT chest
1. There is no evidence of pulmonary embolus.
2. There is lower lobe predominant bronchial wall thickening with scattered groundglass opacities which likely represents bronchiolitis.
3. Mild colonic stool burden without evidence of obstruction.
4. Moderate distention of the urinary bladder.
5. 7 mm hypodensity along the posterior aspect of the uncinate process of the pancreas which may represent small pseudocyst or side branch IPMN. Nonemergent MRI abdomen may be considered as clinically warranted.
6. Mild prominence of the bilateral renal collecting systems without evidence of obstruction. Infection is possible although considered less likely and findings may related to the distended urinary bladder. Consider correlation with urinalysis.
7. 1 myomatous uterus with calcified uterine fibroids.
- monitor closely
-empiric abx on dc
#Toxic Metabolic Encephalopathy, possibly secondary to sepsis vs hypoglycemia vs meds
- able to follow commands/respond to basic questions
- resolved
- CT head unremarkable
- will c/t monitor
#Hyperkalemia, uncertain etiology
- K on admission 5.6 No ECG changes
- resolved
- Will continue to monitor
- repeat BMP in am
#Transaminitis
#Chronic Hepatitis?
- trending down
- records show chronic hepatitis
- AST/ALT/ALP elevation
- will c/t trend
#Dementia, mild - baseline per NH staff is that she is able to take care of her ADLs and communicate appropriately
#IDDM - uncontrolled, brittle per records, was hypoglycemic here and at NH. Holding oral antiglycemic agents & home BB HS/ add SS AC insulin, Ldv2m-8.5
#Essential Hypertension - c/w lisinopril
#Hyperlipidemia - c/w statin
#Hypothyroidism - c/w levothyroxine
#Fibromyalgia
- holding pregabalin, hydrocodone
- CTM
#Bipolar/Depression/Anxiety - c/w Duloxetine
- restart ativan tomorrow as taking it chronically
#Glaucoma - c/w timolol and latanoprost drops
DVT Ppx: Lovenox
Code Status: Full Code
Dispo eventual DC back to [facility]
Time spent coordinating care, DC planning, review of DC plan of care with resident, transition of care, review of records, med rec/scripts sent electronically, consults, notes, d/w consultants, nursing, family, and CM� 32 mins
Original Note:
Today's Communication/Plan
-
d/c on Augmentin to complete a 7d course
Assessment / Plan
Assessment / Plan
69 year old female presenting from [facility] with AMS, Hypoglycemia and Chills
ACUTE MANAGING
#Sepsis, secondary to unknown source
#Leukocytosis
- Tachycardic, tachypneic, leukocytosis with left shift on admission. Lactate wnl.
- Unclear source; UA negative, CXR negative.
- Blood Cx NGTD, MRSA negative (d/c'd vanc)
- s/p 1L NS Infusion
- CT abd/pelvis showing moderate stool burden, no evidence for diverticulitis or acute obstructive process in the bowel/renal system
- D/c abx
- will send home on Augmentin to complete 7d course.
#Toxic Metabolic Encephalopathy, likely secondary to sepsis
- CT head unremarkable
- More responsive today, able to follow commands/respond to basic questions. no meningeal signs
- uncertain of true baseline, however patient seems to be improving in her mood.
- much improved, more awake and alert
#Hyperkalemia, uncertain etiology (resolved)
- K on admission 5.6 No ECG changes. K today 4.3
- Will continue to monitor
#Transaminitis
#Chronic Hepatitis?
- records show chronic hepatitis, dx codes from [place] paperwork also show chronic hepatitis, type unclear
- AST/ALT on admission 48/39, now normalized at 33/25.
- ALP on admission 175, now 140.
- no significant hepatobiliary findings on CT, resolution of abd sx on exam
- will c/t trend
#IDDM (uncontrolled)
- Holding home HS/AC insulin.
- A1C 9.5%
- recurrent episodes of nighttime hypoglycemia, will c/t monitor and strongly consider adjusting home insulin regimen
- c/w LDISS, diabetic diet
CHRONIC STABLE
#Dementia, mild to moderate - baseline per NH staff is that she is able to take care of her ADLs and communicate appropriately
#Essential Hypertension - c/w lisinopril
#Hyperlipidemia - c/w statin
#Hypothyroidism - c/w levothyroxine
#Fibromyalgia
- holding pregabalin, hydrocodone. No pain at this time, do not want to sedate with AMS
- no reports of pain at this time, will observe and treat as needed
#Bipolar/Depression/Anxiety - c/w Duloxetine
#Glaucoma - c/w timolol and latanoprost drops
DVT Ppx: Lovenox
Code Status: Full Code
CT Pe/abd/pel W:
1. There is no evidence of pulmonary embolus.
2. There is lower lobe predominant bronchial wall thickening with scattered groundglass opacities which likely represents bronchiolitis.
3. Mild colonic stool burden without evidence of obstruction.
4. Moderate distention of the urinary bladder.
5. 7 mm hypodensity along the posterior aspect of the uncinate process of the pancreas which may represent small pseudocyst or side branch IPMN. Nonemergent MRI abdomen may be considered as clinically warranted.
6. Mild prominence of the bilateral renal collecting systems without evidence of obstruction. Infection is possible although considered less likely and findings may related to the distended urinary bladder. Consider correlation with urinalysis.
7. 1 myomatous uterus with calcified uterine fibroids.
Anticipated Discharge: Today
Subjective/Interval History
-
Date of Service: February 13, 2025
No acute events overnight. Patient did not report any symptoms but told me to 'beat it' when I asked her more questions and tried to examine her.
Objective Data
-
Labs:
Laboratory Results
02/13/25
05:32
WBC 11.2 H
Hgb 11.3 L
Hct 33.5 L
Plt Count 256 D
Sodium 136
Potassium 4.3
Chloride 104
Carbon Dioxide 18 L
BUN 10
Creatinine 0.8
Glucose 335 H
Calcium 9.5
Total Bilirubin 0.7
AST 39 H
ALT 27
Alkaline Phosphatase 158 H
Vital Signs:
Vital Signs
Temp Pulse Resp BP Pulse Ox
98.1 F 110 17 168/85 97
02/13/25 07:05 02/13/25 07:05 02/13/25 07:05 02/13/25 07:05 02/13/25 07:05
I&O
02/12/25 02/13/25 02/14/25
06:59 06:59 06:59
Intake Total 900 / 900
Balance 900 / 900
Review of Systems
-
Unable to obtain full review of systems at this time due to: Dementia and Other (PT refused to answer anymore questions)
History Source: Patient
Constitutional: Reports No Symptoms
Respiratory: Reports No Symptoms
Cardiac: Reports No Symptoms
Abdomen/GI: Reports No Symptoms
Musculoskeletal: Reports No Symptoms
Physical Exam
-
General: Well Developed, Well Nourished, No Apparent Distress and Comfortable
HEENT: Normocephalic and Atraumatic
Respiratory: Clear to Auscultation and Non Labored Respirations; Negative Wheezes, Rales or Rhonchi
Cardiac: Regular Rhythm and S1/S2; Negative Murmur or Rub
GI: Soft, Nontender and Nondistended
Musculoskeletal: No Clubbing, No Cyanosis and No Edema
Skin: Warm, Dry and IV Access / Catheter Site
Neuro: Awake, Alert and Oriented
Psych: Apparent Dementia
[2025-02-13] MEDS: CYMBALTA DELAYED RELEASE 60 MG PO (09:24)
[2025-02-13 11:51] LABS: Glucose - Point of Care 328 mg/dl (70-99)
--- NOTE | 2025-02-13 14:23 | CM ---
Addendum entered by Summer Ballard 02/13/25 16:44:
[facility] was unable to obtain a personal driver, so will need transport back to [facility]. W/C van transport requested; [facility] will pay for the cost.
Transport time scheduled for 545pm today. [facility] aware of transport time.
Original Note:
Pt is ready for discharge today, returning to [facility]. Await determination from [facility] regarding their ability to provide transport back to the facility.
VM left for pt's sister to make her aware of plan for Jaquelin Ramirez's return to [facility].
[facility] Report: [phone]
[facility]
[2025-02-13 15:05] VITALS: BP 158/81
[2025-02-13 16:44] LABS: Glucose - Point of Care 354 mg/dl (70-99)
[2025-02-13] MEDS: LOVENOX SC (17:09)
--- NOTE | 2025-02-13 17:20 | W.DCSUMMARY ---
Addendum entered and electronically signed by Larry Bolton MD 02/13/25 23:52:
Read, reviewed, and agree. See same day progress note for additional details.
Paulo Bolton MD
Original Note:
Documented by User: Alin Salmeron MD, Resident 02/13/25 18:11
Discharge Summary
Discharge Data
Date of Admission: 02/11/25
Date of Discharge: 02/13/25
Total time spent discharging patient (in min): >30min
-
Pending Results: No
Hospital Course
Discharging Physician : Dr. Alin Salmeron, Dr. Larry Bolton
Disposition : [facility]
Primary care physician : Dr. Praveen Ceballos
Principal Discharge diagnosis : Sepsis, secondary to unknown source, Leukocytosis, Toxic Metabolic Encephalopathy, likely secondary to sepsis, Hyperkalemia, uncertain etiology (resolved), Transaminitis
Chronic Discharge diagnosis : Chronic Hepatitis, IDDM (uncontrolled), Dementia, mild to moderate, Essential Hypertension, Hyperlipidemia, Hypothyroidism, Fibromyalgia, Bipolar/Depression/Anxiety, Glaucoma
Hospital Course :
69 year old female presenting from [facility] with AMS, Hypoglycemia and Chills
#Sepsis, secondary to unknown source
#Leukocytosis
- Tachycardic, tachypneic, leukocytosis with left shift on admission. Lactate wnl.
- Unclear source; UA negative, CXR negative.
- Blood Cx NGTD, MRSA negative
- s/p 1L NS Infusion
- CT abd/pelvis showing moderate stool burden, no evidence for diverticulitis or acute obstructive process in the bowel/renal system
- Was on Vanc/Zosyn empirically. Discontinued with negative workup and resolving Sx/leukocytosis
- sent home on Augmentin to complete 7d course
#Toxic Metabolic Encephalopathy, likely secondary to sepsis
- CT head unremarkable
- Had NO meningeal signs. Was arousable, responsive and Orientedx3.
- Intermittent disagreeable mood, however ultimately directable and able to follow commands. Pleasant at times.
#Hyperkalemia, uncertain etiology
- K on admission 5.6 No ECG changes. Improved throughout admission.
#Transaminitis
#Chronic Hepatitis
- records show chronic hepatitis, type unclear
- AST/ALT/ALP on admission 48/39/175; normalized throughout admission.
- no significant hepatobiliary findings on CT, resolution of abdominal sx by hospital day 2
#IDDM (uncontrolled)
- Held home HS/AC insulin. managed on LDISS
- A1C 9.5%
- x1 episode of nighttime hypoglycemia to 40s requiring glucose. After that, sugars in the 200s-300s.
- Resumed home dosing on discharge
#Dementia, mild to moderate - no acute changes
#Essential Hypertension - continued on lisinopril, no acute hypertensive episodes
#Hyperlipidemia - continued on statin; no changes.
#Hypothyroidism - continued on levothyroxine, TSH wnl.
#Fibromyalgia
- held pregabalin, hydrocodone. Was not in pain or asking for pain medication, did not want to sedate with acute mental status changes on admission
- continued to report no paint throughout
#Bipolar/Depression/Anxiety - continued on Duloxetine. No acute issues or medication changes.
#Glaucoma - continued on timolol and latanoprost drops.
The following medications were stopped in an effort to reduce polypharmacy and listed below for appropriate coordination of care.
- Albuterol Inhaler BID; patient was not wheezing, had no SOB and was not complaining of any respiratory symptoms. Consider evaluating the need for her duo-nebs and other inhaler at baseline.
- Biotin; no immediate indication and paltry evidence to support benefit. Concern for altered lab values in a patient with Hypothyroidism.
- Vitamin D3; limited evidence for benefit. However, please consider with appropriate outpatient testing of Vitamin D levels.
- CoQ10; uncertain benefit and diagnosis requiring this medication.
- Thiamine; no history of alcohol use known to us. Please consider the need for this vitamin in the patient's appropriate clinical context.
- Hydrocodone -Acetaminophen; while admitted the patient did not complain of any pain. Please consider the need for such strong pain medication and the potential consequences in this patient.
Would encourage evaluation and further reconciliation of the patient's medication for necessity, given the significant risks of polypharmacy in patients >65 and with multiple comorbidities.
Important imaging findings :
CR Chest - 2 Views:
1. Mild prominence of interstitium, most likely related to low inspiratory volumes.
2. Otherwise clear lungs.
CT Head W/o Iv Contrast:
1. No acute intracranial abnormalities appreciated.
2. Mild atrophy and mild chronic small vessel change.
3. No significant change compared to prior study.
CT Pe/abd/pel W:
1. There is no evidence of pulmonary embolus.
2. There is lower lobe predominant bronchial wall thickening with scattered groundglass opacities which likely represents bronchiolitis.
3. Mild colonic stool burden without evidence of obstruction.
4. Moderate distention of the urinary bladder.
5. 7 mm hypodensity along the posterior aspect of the uncinate process of the pancreas which may represent small pseudocyst or side branch IPMN. Nonemergent MRI abdomen may be considered as clinically warranted.
6. Mild prominence of the bilateral renal collecting systems without evidence of obstruction. Infection is possible although considered less likely and findings may related to the distended urinary bladder. Consider correlation with urinalysis.
7. 1 myomatous uterus with calcified uterine fibroids.
Procedure findings :
None.
Discharge Plan
-
Patient Disposition: Long-Term/SNF
Discharge Diagnosis/Procedures: Altered Mental Status
Sepsis
Condition: Good
Diet: Regular
Activity: As tolerated
Referrals:
Praveen Ceballos I., DO [Family Provider] -
Additional Discharge Medication Instructions: Start taking Augmentin BID for 4 more days for suspected bacterial sepsis w/o bacteremia
Prescriptions:
New
amoxicillin-pot clavulanate [Augmentin] 500-125 mg tablet
1 tab PO BID 4 Days Qty: 8 0RF
Continued
trazodone 50 MG tablet
25 mg PO HS
atorvastatin 10 MG tablet
5 mg PO HS
lorazepam 0.5 MG tablet
0.5 mg PO HS
aspirin 81 MG tablet,chewable
81 mg PO DAILY
lisinopril 5 MG tablet
5 mg PO DAILY
cyclosporine [Restasis] 10 DROPS dropperette
1 drp BOTH EYES BID
duloxetine 60 MG capsule,delayed release(DR/EC)
60 mg PO DAILY
melatonin 5 MG tablet
5 mg PO HS
pregabalin 50 MG capsule
50 mg PO TID
acetaminophen 325 MG tablet
650 mg PO Q4HPRN PRN (Reason: mild pain/fever>100)
latanoprost 0.005 % Drops
1 drp BOTH EYES HS
ipratropium-albuterol 0.5 mg-3 mg(2.5 mg base)/3 mL Solution For Nebulization
3 ml INHALATION R Q4
Sarna Original 0.5-0.5 % Lotion
1 applic TOPICAL [id number] PRN (Reason: arms,legs trunk skin care)
dorzolamide-timolol 22.3-6.8 mg/mL drops
1 drp BOTH EYES BID
albuterol sulfate 90 mcg/actuation Hfa Aerosol Inhaler
2 puff INHALATION R Q4HPRN PRN (Reason: sob,wheezing,cough)
Sore Throat (phenol) 1.4 % Aerosol,[place]
2 spray MUCOUS MEMBRANE Q6HPRN PRN (Reason: sore throat)
insulin degludec [Tresiba FlexTouch U-100] 100 unit/mL (3 mL) Insulin Pen
22 unit SC HS
levothyroxine [Synthroid] 75 mcg Tablet
75 mcg PO MOTUWETHFRSA@0700
erythromycin 5 mg/gram (0.5 %) Ointment
0.25 inch BOTH EYES HS
insulin aspart U-100 [Novolog FlexPen U-100 Insulin] 100 unit/mL (3 mL) Insulin Pen
2 sliding scale dose SC AC
Rx Instructions:
201-250=4UNIT, 251-300=6UNIT
Refresh Optive 0.5-0.9 % Drops
1 drp BOTH EYES TID
Discontinued
thiamine HCl (vitamin B1) 100 MG tablet
100 mg PO DAILY
biotin 5 mg Capsule
5 mg PO DAILY
hydrocodone-acetaminophen 5-325 mg Tablet
1 tab PO HS
coQ10 (ubiquinol) 200 mg Capsule
200 mg PO BID
albuterol sulfate 90 mcg/actuation HFA aerosol inhaler
2 puff INHALATION R DAILY
cholecalciferol (vitamin D3) 1,250 mcg (50,000 unit) capsule
1,250 mcg PO MONTHLY
Rx Instructions:
on the of the
Discharge Orders:
Discharge Patient (As Directed); Ordered 02/13/25
Ordered By: Alin Salmeron
Discharge Date and Time
Discharge Date/Time: 02/13/25 17:39
Print Language: HAITIAN

Documented by User: Larry Bolton MD 02/13/25 23:48
Discharge Summary
Discharge Data
Date of Admission: 02/11/25
Date of Discharge: 02/13/25
Discharge Plan
-
Patient Disposition: Long-Term/SNF
Discharge Diagnosis/Procedures: Altered Mental Status
Sepsis
Condition: Good
Diet: Regular
Activity: As tolerated
Referrals:
Praveen Ceballos DO [Family Provider] -
Additional Discharge Medication Instructions: Start taking Augmentin BID for 4 more days for suspected bacterial sepsis w/o bacteremia
Prescriptions:
New
amoxicillin-pot clavulanate [Augmentin] 500-125 mg tablet
1 tab PO BID 4 Days Qty: 8 0RF
Continued
trazodone 50 MG tablet
25 mg PO HS
atorvastatin 10 MG tablet
5 mg PO HS
lorazepam 0.5 MG tablet
0.5 mg PO HS
aspirin 81 MG tablet,chewable
81 mg PO DAILY
lisinopril 5 MG tablet
5 mg PO DAILY
cyclosporine [Restasis] 10 DROPS dropperette
1 drp BOTH EYES BID
duloxetine 60 MG capsule,delayed release(DR/EC)
60 mg PO DAILY
melatonin 5 MG tablet
5 mg PO HS
pregabalin 50 MG capsule
50 mg PO TID
acetaminophen 325 MG tablet
650 mg PO Q4HPRN PRN (Reason: mild pain/fever>100)
latanoprost 0.005 % Drops
1 drp BOTH EYES HS
ipratropium-albuterol 0.5 mg-3 mg(2.5 mg base)/3 mL Solution For Nebulization
3 ml INHALATION R Q4
Sarna Original 0.5-0.5 % Lotion
1 applic TOPICAL [id number] PRN (Reason: arms,legs trunk skin care)
dorzolamide-timolol 22.3-6.8 mg/mL drops
1 drp BOTH EYES BID
albuterol sulfate 90 mcg/actuation Hfa Aerosol Inhaler
2 puff INHALATION R Q4HPRN PRN (Reason: sob,wheezing,cough)
Sore Throat (phenol) 1.4 % Aerosol,[place]
2 spray MUCOUS MEMBRANE Q6HPRN PRN (Reason: sore throat)
insulin degludec [Tresiba FlexTouch U-100] 100 unit/mL (3 mL) Insulin Pen
22 unit SC HS
levothyroxine [Synthroid] 75 mcg Tablet
75 mcg PO MOTUWETHFRSA@0700
erythromycin 5 mg/gram (0.5 %) Ointment
0.25 inch BOTH EYES HS
insulin aspart U-100 [Novolog FlexPen U-100 Insulin] 100 unit/mL (3 mL) Insulin Pen
2 sliding scale dose SC AC
Rx Instructions:
201-250=4UNIT, 251-300=6UNIT
Refresh Optive 0.5-0.9 % Drops
1 drp BOTH EYES TID
Discontinued
thiamine HCl (vitamin B1) 100 MG tablet
100 mg PO DAILY
biotin 5 mg Capsule
5 mg PO DAILY
hydrocodone-acetaminophen 5-325 mg Tablet
1 tab PO HS
coQ10 (ubiquinol) 200 mg Capsule
200 mg PO BID
albuterol sulfate 90 mcg/actuation HFA aerosol inhaler
2 puff INHALATION R DAILY
cholecalciferol (vitamin D3) 1,250 mcg (50,000 unit) capsule
1,250 mcg PO MONTHLY
Rx Instructions:
on the of the month
Discharge Orders:
Discharge Patient (As Directed); Ordered 02/13/25
Ordered By: Alin Salmeron
Discharge Date and Time
Discharge Date/Time: 02/13/25 17:39
Print Language: HAITIAN
== END 2025-02-13 17:39 | DRG 871 ==
LOC: 3 WEST ACU 13:49
PROVIDERS: Nurse Practitioner; Nurse Practitioner Family; ADMITTING PHYSICIAN Family Medicine; EMERGENCY PHYSICIAN Student in an Organized Health Care Education/Training Program; FAMILY PHYSICIAN Internal Medicine
DX: A41.9 Sepsis, unspecified organism (principal); G92.8 Other toxic encephalopathy; F03.A3 Unspecified dementia, mild, with mood disturbance; F03.A4 Unspecified dementia, mild, with anxiety; E87.5 Hyperkalemia; K73.9 Chronic hepatitis, unspecified; E11.649 Type 2 diabetes mellitus with hypoglycemia without coma; Z79.4 Long term (current) use of insulin; F31.9 Bipolar disorder, unspecified; I10 Essential (primary) hypertension; E78.00 Pure hypercholesterolemia, unspecified; E03.9 Hypothyroidism, unspecified; M79.7 Fibromyalgia; H40.9 Unspecified glaucoma; Z79.899 Other long term (current) drug therapy; Z79.890 Hormone replacement therapy; D25.9 Leiomyoma of uterus, unspecified; E66.9 Obesity, unspecified; Z68.29 Body mass index [BMI] 29.0-29.9, adult; K21.9 Gastro-esophageal reflux disease without esophagitis; N32.89 Other specified disorders of bladder; Z79.82 Long term (current) use of aspirin; Z11.52 Encounter for screening for COVID-19
CPT/HCPCS: 70450; 71046; 71275; 74177; 80053; 80202; 81003; 81015; 82140; 82962; 83036; 83605; 84443; 85025; 87040; 87070; 87502; 87811; 92610; 93005; 96361; 96374; 99285; Q9967